=== PATIENT | female | born 1965 | race Hispanic/Latino ===

== ENCOUNTER 2019-04-15 05:19 | Emergency (ER) | payer OTHER ==
[~2019-04-15] VITALS: Ht 162.6 cm; Wt 83.5 kg
[2019-04-15] MEDS ORDERED: ONDANSETRON HCL INJ 2MG/ML 2ML 2 MG/ML VIAL IV STA (05:30)
[2019-04-15] MEDS ORDERED: PANTOPRAZOLE 40 MG 10ML VIAL IV STA (05:30)
[2019-04-15] MEDS ORDERED: DICYCLOMINE HCL 20 MG/2 ML VIAL IM ONE ×2 (05:30→06:19)
[2019-04-15] MEDS ORDERED: ACETAMINOPHEN 325 MG TAB PO ONE (05:45)
[2019-04-15] MEDS ORDERED: SODIUM CHLORIDE 0.9% 1000ML 1,000 ML IV ONE (05:45)
--- NOTE | 2019-04-15 05:58 | NUR ---
PTS SPOUSE REPORTS SON DIAGNOSED WITH FLU ON FRIDAY
[2019-04-15 06:06] LABS: BASOPHILS % 0.4 % (0.0-1.0); EOSINOPHILS # (AUTO) 0.2 (0.0-0.4); EOSINOPHILS % 2.4 % (0.0-6.0); HEMATOCRIT 38.9 % (34.2-44.1); HEMOGLOBIN 13.2 g/dL (12.0-16.0); LYMPHOCYTES # (AUTO) 1.1 (1.0-3.2); LYMPHOCYTES % 13.6 % (18.0-39.1); MEAN CORPUSCULAR HEMOGLOBIN 29.9 pg (28-32); MEAN CORPUSCULAR HGB CONC 33.9 g/dL (31-35); MONOCYTES # (AUTO) 0.5 (0.2-0.8); NEUTROPHILS # (AUTO) 6.1 (2.1-6.9); NEUTROPHILS % 77.2 % (38.7-80.0); PLATELET COUNT 227 x10e3/uL (140-360); RED BLOOD COUNT 4.42 x10e6/uL (3.6-5.1)
[2019-04-15 06:21] LABS: BILIRUBIN,URINE NEGATIVE (NEGATIVE); CLARITY,URINE CLEAR (CLEAR); COLOR,URINE YELLOW (YELLOW); KETONES,URINE NEGATIVE (NEGATIVE); LEUKOCYTE ESTERASE ,URINE NEGATIVE (NEGATIVE); NITRITE,URINE NEGATIVE (NEGATIVE); PROTEIN,URINE DIPSTICK NEGATIVE (NEGATIVE); URINE UROBILINOGEN 0.2 mg/dL (0.2 - 1)
[2019-04-15 06:22] LABS: BACTERIA,URINE RARE /HPF; EPITHELIAL CELLS,URINE FEW /LPF; RBC,URINE 0-5 /HPF (0-5); WBC,URINE (MAN) 0-5 /HPF (0-5)
--- NOTE | 2019-04-15 06:32 | Diagnostic Imaging Report ---
EXAMINATION: CHEST SINGLE (PORTABLE) INDICATION: Fever. COMPARISON: None FINDINGS: TUBES and LINES: None. LUNGS: Lungs are well inflated. Patchy density in the lung bases may represent atelectasis, however, developing infection or aspiration with interferential diagnosis proper clinical setting. There is no evidence of pneumonia or pulmonary edema. PLEURA: No pleural effusion or pneumothorax. HEART AND MEDIASTINUM: Cardiac size is mildly enlarged. BONES AND SOFT TISSUES: No acute osseous lesion. UPPER ABDOMEN: No free air under the diaphragm. IMPRESSION: Patchy density in the lung bases may represent atelectasis, however, developing infection or aspiration with interferential diagnosis proper clinical setting Signed by: Dr. Jaun Luis Olvera M.D. on 04/15/2019 6:29 AM
[2019-04-15 06:40] LABS: ALANINE AMINOTRANSFERASE 14 IU/L (0-55); ALKALINE PHOSPHATASE 104 IU/L (40-150); ANION GAP 17.6 mmol/L (8-16); BLOOD UREA NITROGEN 13 mg/dL (7-26); BUN/CREATININE RATIO 16 (6-25); CARBON DIOXIDE 25 mmol/L (22-29); CHLORIDE 102 mmol/L (98-107); CREATINE KINASE 109 IU/L (29-168); CREATININE, SERUM 0.79 mg/dL (0.57-1.11); EST GLOMERULAR FILTRATION RATE > 60 ML/MIN (60-); GLUCOSE 94 mg/dL (74-118); POTASSIUM 3.6 mmol/L (3.5-5.1); SODIUM 141 mmol/L (136-145)
[2019-04-15 07:05] LABS: AMYLASE 66 U/L (25-125); LIPASE 27 U/L (8-78)
--- NOTE | 2019-04-15 07:29 | Diagnostic Imaging Report ---
EXAM: Right Upper Quadrant Ultrasound INDICATION: Right upper quadrant pain. COMPARISON: None. TECHNIQUE: Transverse and longitudinal images of the right upper abdomen were obtained. FINDINGS: Liver: Size: 12.7 cm in the right midclavicular line, normal Appearance: Mildly diffuse increased echogenicity, smooth contour Mass: No focal masses Gallbladder: Stones/Sludge: Multiple shadowing echogenic foci within the gallbladder lumen. Wall: 0.4 cm, mildly thickened. Appearance: No wall thickening, pericholecystic fluid or hydrops. Sonographic Veras's Sign: Negative Bile Ducts: Intrahepatic Ducts: No dilatation Extrahepatic Ducts: Common bile duct measures 0.4 cm, no dilatation Pancreas: Visualized portions of the pancreatic head, neck and proximal body are normal. Kidneys: Length: Right 11.2 cm Echogenicity: Normal Collecting System: No hydronephrosis Stone: None Cyst/Mass: Anechoic lesion in the lower pole is 3.2 x 2.7 x 3.2 cm consistent with a simple cyst. Vessels: Aorta: Not visualized due to shadowing from overlying bowel gas. Inferior Vena Cava: Visualized portions are normal Main Portal Vein: 0.7 cm, normal size with hepatopetal flow. Free Fluid: No ascites or pleural effusion IMPRESSION: Cholelithiasis associated with mild gallbladder wall thickening, however, without pericholecystic fluid, and a negative sonographic Veras's sign; these findings may reflect chronic calculus cholecystitis. Recommend surgical consultation. Signed by: Dr. Juan Luis Olvera M.D. on 04/15/2019 7:26 AM
[2019-04-15 07:51] VITALS: BP 120/50
== END 2019-04-15 08:07 | disposition home or self-care (01) ==
LOC: ER 05:19
DX: K80.80 Other cholelithiasis without obstruction (principal); J06.9 Acute upper respiratory infection, unspecified; I10 Essential (primary) hypertension; E11.9 Type 2 diabetes mellitus without complications; E78.5 Hyperlipidemia, unspecified
CPT/HCPCS: 36415; 71045; 76705; 80053; 81001; 82150; 82550; 82553; 83518; 83605; 83690; 84484; 85025; 87040; 87070; 87086; 87400; 93005; 96374; 96375; 99284; C9113; J0500; J2405; J7030

== ENCOUNTER → 2019-05-10 | Day surgery (SDC) | payer OTHER ==
[2019-04-29 13:07] LABS: BASOPHILS % 0.4 % (0.0-1.0); EOSINOPHILS # (AUTO) 0.2 (0.0-0.4); EOSINOPHILS % 2.7 % (0.0-6.0); HEMATOCRIT 38.3 % (34.2-44.1); HEMOGLOBIN 12.6 g/dL (12.0-16.0); LYMPHOCYTES # (AUTO) 2.1 (1.0-3.2); LYMPHOCYTES % 27.4 % (18.0-39.1); MEAN CORPUSCULAR HEMOGLOBIN 29.7 pg (28-32); MEAN CORPUSCULAR HGB CONC 32.9 g/dL (31-35); MEAN CORPUSCULAR VOLUME 90.3 fL (81-99); MONOCYTES # (AUTO) 0.4 (0.2-0.8); MONOCYTES % 5.2 % (4.4-11.3); PLATELET COUNT 266 x10e3/uL (140-360); RED BLOOD COUNT 4.24 x10e6/uL (3.6-5.1); RED CELL DISTRIBUTION WIDTH 12.7 % (11.7-14.4)
[2019-04-29 13:27] LABS: ALANINE AMINOTRANSFERASE 19 IU/L (0-55); ALBUMIN 3.8 g/dL (3.5-5.0); ALBUMIN/GLOBULIN RATIO 1.1 (0.8-2.0); ALKALINE PHOSPHATASE 85 IU/L (40-150); ANION GAP 11.7 mmol/L (8-16); BLOOD UREA NITROGEN 15 mg/dL (7-26); BUN/CREATININE RATIO 21 (6-25); CALCIUM 9.9 mg/dL (8.4-10.2); CARBON DIOXIDE 28 mmol/L (22-29); CHLORIDE 105 mmol/L (98-107); CREATININE, SERUM 0.73 mg/dL (0.57-1.11); EST GLOMERULAR FILTRATION RATE > 60 ML/MIN (60-); GLUCOSE 108 mg/dL (74-118); POTASSIUM 4.7 mmol/L (3.5-5.1); SODIUM 140 mmol/L (136-145)
[~2019-05-10] MED LIST: ATORVASTATIN CA20 MG PO; BUPIVACAINE 0.25% 30ML SDV INJ ONE; CEFOXITIN 1GM/ D5W 50ML 50 ML IV ONE; CEFOXITIN IV ONE; D5W IV ONE; DEXAMETHASONE SOD PHOS INJ 4 MG/ML VIAL ONE; FENTANYL CITRATE/PF 100MCG/2 ML INJ ONE; GLIPIZIDE5 MG PO; GLYCOPYRROLATE INJ 0.2 MG/ML VIAL ONE; HYDROCHLOROTH12.5 MG PO; HYDROCODONE/APAP 7.5MG-325MG 1 EA TAB ONE; JANUVIA100 MG PO; LIDOCAINE HCL 2% LOCAL INJ 5 ML SDV VIAL INJ ONE; LOSARTAN POTAS100 MG PO; METFORMIN HCL1000 MG PO; MIDAZOLAM HCL 2 MG/2 ML VIAL ONE; NEOSTIGMINE 1 MG/ML 10ML VIAL ONE; ONDANSETRON HCL INJ 2MG/ML 2ML 2 MG/ML VIAL ONE; PLOGLITAZONE PO; PROPOFOL IV EMULSION 10 MG/ML 20 ML VIAL ONE; ROCURONIUM BROMIDE 10 MG/ML 5ML VIAL ONE; SEVOFLURANE INHAL SOLN 250 ML PEN BTL ONE
--- OUTSIDE RECORDS SUMMARY | 2019-05-10 07:18 | XMS REPORT ---
Author Author [facility] Organization [facility] Address Unknown Phone Unavailable Care Team Providers Care Pulling Unit Operator Name Role Phone Cassi COMER Unavailable Unavailable Cassi LEBLANC Unavailable Unavailable Payers Payer Name Policy Type Policy Number Effective Date Expiration Date Problems This patient has no known problems. Allergies, Adverse Reactions, Alerts Allergy Name Allergy Type Status Severity Reaction(s) Onset Date Inactive Date Treating Clinician Comments No Known Allergies DA Active U 2010-10-22 00:00:00 Medications This patient has no known medications. Results Test Description Test Time Test Comments Text Results Atomic Results Result Comments US GALLBLADDER 2019-04-15 07:18:00 [place] [address] Patient Name: ESTELLE BLAKE MR #: [id number] : 1965 Age/Sex: 54/F Req #: [id number] Adm Physician: Ordered by: ARLENE COMER MD Report #: [id number] Location: ER Room/Bed: Procedure: [id number] US/ GALLBLADDER Exam Date: 04/15/19 Exam Time: 0657 REPORT STATUS: Signed EXAM: Right Upper Quadrant Ultrasound INDICATION: Right upper quadrant pain. COMPARISON: None. TECHNIQUE: Transverse and longitudinal images of the right upper abdomen were obtained. FINDINGS: Liver: Size: 12.7 cm in the right midclavicular line, normal Appearance: Mildly diffuse increased echogenicity, smooth contour Mass: No focal masses Gallbladder: Stones/Sludge: Multiple shadowing echogenic foci within the gallbladder lumen. Wall: 0.4 cm, mildly thickened. Appearance: No wall thickening, pericholecystic fluid or hydrops. Sonographic Veras's Sign: Negative Bile Ducts: Intrahepatic Ducts: No dilatation Extrahepatic Ducts: Common bile duct measures 0.4 cm, no dilatation Pancreas: Visualized portions of the pancreatic head, neck and proximal body are normal. Kidneys: Length: Right 11.2 cm Echogenicity: Normal Collecting System: No hydronephrosis Stone: None Cyst/Mass: Anechoic lesion in the lower pole is 3.2 x 2.7 x 3.2 cm consistent with a simple cyst. Vessels: Aorta: Not visualized due to shadowing from overlying bowel gas. Inferior Vena Cava: Visualized portions are normal Main Portal Vein: 0.7 cm, normal size with hepatopetal flow. Free Fluid: No ascites or pleural effusion IMPRESSION: Cholelithiasis associated with mild gallbladder wall thickening, however, without pericholecystic fluid, and a negative sonographic Veras's sign; these findings may reflect chronic calculus cholecystitis. Recommend surgical consultation. Signed by: Dr. Juan Luis Schuler M.D. on 04/15/2019 7:26 AM Dictated By: DARYL SCHULER MD, MD 5 Transcribed By: RAJWINDER on 04/15/19725 COPY TO: ARLENE COMER MD CHEST SINGLE (PORTABLE) 2019-04-15 06:26:00 [place] [address] Patient Name: ESTELLE BLAKE MR #: [id number] : 1965 Age/Sex: 54/F Req #: [id number] Adm Physician: Ordered by: ARLENE COMER MD Report #: [id number] Location: Room/Bed: Procedure: [id number] DX/CHEST SINGLE (PORTABLE) Exam Date: 04/15/19 Exam Time: 0600 REPORT STATUS: Signed EXAMINATION: CHEST SINGLE (PORTABLE) INDICATION: Fever. COMPARISON: None FINDINGS: TUBES and LINES: None. LUNGS: Lungs are well inflated. Patchy density in the lung bases may represent atelectasis, however, developing infection or aspiration with interferential diagnosis proper clinical setting. There is no evidence of pneumonia or pulmonary edema. PLEURA: No pleural effusion or pneumothor ax. HEART AND MEDIASTINUM: Cardiac size is mildly enlarged. BONES AND SOFT TISSUES: No acute osseous lesion. UPPER ABDOMEN: No free air under the diaphragm. IMPRESSION: Patchy density in the lung bases may represent atelectasis, however, developing infection or aspiration with interferential diagnosis proper clinical setting Signed by: Dr. Juan Luis Schuler M.D. on 04/15/2019 6:29 AM Dictated By: DARYL SCHULER MD, MD 8 Transcribed By: RAJWINDER on 04/15/19628 COPY TO: ARLENE COMER MD RBC, Crossmatch 2 2016-05-18 01:53:00 Product 1 Code (test code=PRODCODE1) E4545 Unit 1 ID (test code=UNITID1) [id number] Unit 1 ABO (test code=UNITABO1) O Unit 1 Rh (test code=UNITRH1) POS Unit 1 Interp (test code=UNITINTERP1) Compatible Unit 1 Status (test code=UNITSTAT1) RE Product 2 Code (test code=PRODCODE2) E4545 Unit 2 ID (test code=UNITID2) [id number] Unit 2 ABO (test code=UNITABO2) O Unit 2 Rh (test code=UNITRH2) POS Unit 2 Interp (test code=UNITINTERP2) Compatible Unit 2 Status (test code=UNITSTAT2) RE POC Glucose, [id number] 12:25:00* Test Item Value Reference Range Comments POC Glucose (test code=POCGLUC) 188 mg/dL 70-115 If you consider your patient critically ill, the Abilio Accu-Chek InformII metershould not be used for Glucose determinations.Draw a venous Glucose and send to the Main Lab for Analysis. [id number] 06:24:00* Test Item Value Reference Range Comments WBC (test code=WBC) 15.4 K/cumm 4.4-10.5 RBC (test code=RBC) 3.86 M/cumm 3.75-5.20 Hemoglobin (test code=HGB) 7.1 gm/dL 12.2-14.8 Hematocrit (test code=HCT) 27.5 % 36.5-44.4 MCV (test code=MCV) 71.2 fL 80-100 MCH (test code=MCH) 18.4 pg 27.0-32.5 MCHC (test code=MCHC) 25.8 g/dL 32.0-37.5 RDW (test code=RDW) 18.1 % 11.5-14.5 Platelet Count (test code=PLTCT) 260 K/cumm 140-440 MPV (test code=MPV) 8.6 fL POC Glucose, [id number] 21:52:00* Test Item Value Reference Range Comments POC Glucose (test code=POCGLUC) 218 mg/dL 70-115 Notify RN or MDIf you consider your patient critically ill, the Abilio Accu-Chek InformII metershould not be used for Glucose determinations.Draw a venous Glucose and send to the Main Lab for Analysis. POC Glucose, [id number] 16:12:00* Test Item Value Reference Range Comments POC Glucose (test code=POCGLUC) 262 mg/dL 70-115 If you consider your patient critically ill, the Abilio Accu-Chek InformII metershould not be used for Glucose determinations.Draw a venous Glucose and send to the Main Lab for Analysis. Blood Type and [id number] 14:16:00* Test Item Value Reference Range Comments ABO type (test code=ABO) O Rh Type (test code=RH) Positive Antibody Screen - [id number] 14:08:00* Test Item Value Reference Range Comments Antibody Screen (test code=ABSCR) Negative POC Glucose, [id number] 10:02:00* Test Item Value Reference Range Comments POC Glucose (test code=POCGLUC) 187 mg/dL 70-115 If you consider your patient critically ill, the Abilio Accu-Chek InformII metershould not be used for Glucose determinations.Draw a venous Glucose and send to the Main Lab for Analysis. BHCG, Serum, [id number] 18:25:00* Test Item Value Reference Range Comments Preg Qual [Se] (test code=BSHCG) Negative Negative CBC with [id number] 17:24:00* Test Item Value Reference Range Comments WBC (test code=WBC) 10.5 K/cumm 4.4-10.5 RBC (test code=RBC) 4.45 M/cumm 3.75-5.20 Hemoglobin (test code=HGB) 8.3 gm/dL 12.2-14.8 Hematocrit (test code=HCT) 30.1 % 36.5-44.4 MCV (test code=MCV) 67.6 fL 80-100 MCH (test code=MCH) 18.6 pg 27.0-32.5 MCHC (test code=MCHC) 27.5 g/dL 32.0-37.5 RDW (test code=RDW) 18.6 % 11.5-14.5 Platelet Count (test code=PLTCT) 352 K/cumm 140-440 MPV (test code=MPV) 8.6 fL Diff Method (test code=DIFFM) Manual Neutrophil (test code=NEUT) 69.0 % 36-70 Bands (test code=BAND) 1.0 % 0-6 Lymphocyte (test code=LYMPH) 18.0 % 12-44 Monocyte (test code=MONO) 6.0 % 0-11 Eosinophil (test code=EOS) 4.0 % 0-7 Basophil (test code=BASO) 1.0 % 0-2 Myelocyte (test code=MYELO) 1.0 % 0.0-0.0 Neutro Abs (test code=ANEUT) 7.4 K/cumm 1.6-7.4 Lymph Abs (test code=ALYMPH) 1.9 K/cumm 0.5-4.6 Morrill Abs (test code=AMONO) 0.6 K/cumm 0.0-1.2 Eos Abs (test code=AEOS) 0.42 K/cumm 0.00-0.74 Baso Abs (test code=ABASO) 0.1 K/cumm 0.00-0.21 RBC Morphology (test code=RBCMRPH) Slight Polychromasia ; Few Ovalocytes ; Moderate Anisocytosis Platelet Est (test code=PLTEST) Normal Platelet on Smear Comprehensive Metabolic [id number] 17:08:00* Test Item Value Reference Range Comments Sodium (test code=NA) 138 mmol/L 135-145 Potassium (test code=K) 4.3 mmol/L 3.5-5.1 Chloride (test code=CL) 101 mmol/L 98-105 Carbon Dioxide (test code=CO2) 30 mmol/L 22-29 Glucose (test code=GLU) 100 mg/dL 70-115 Blood Urea Nitrogen (test code=BUN) 13 mg/dL 6-20 Creatinine (test code=CREAT) 0.5 mg/dL 0.5-0.9 Calcium (test code=CA) 9.5 mg/dL 8.3-10.5 Prot Total (test code=TP) 7.6 g/dL 6.4-8.3 Albumin (test code=ALB) 4.2 g/dL 3.5-5.2 A/G Ratio (test code=AGRATIO) 1.2 Ratio Globulin (test code=GLOB) 3.4 2.9-3.1 Bili Total (test code=TBIL) 0.2 mg/dL 0.1-0.9 Alk Phos (test code=APHOS) 119 U/L 35-104 AST (test code=AST) 14 U/L 1-32 ALT (test code=ALT) 13 U/L 1-33 BUN/Creatinine Ratio (test code=BCRATIO) 26.0 Anion Gap (test code=AGAP) 7 mmol/L 7-16 Estimated GFR (test code=GFR) >60 mL/min/1.73m2 eGFR (estimated Glomerular Filtration Rate) is an estimated value,calculated from the patient's serum creatinine using the MDRD equation.It is NOT the patient's actual GFR. The eGFR provides a more clinicallyuseful measure of kidney disease than serum creatinine alone.This calculation takes sex and race into account, if the informationis provided. If the race is not provided, and the patient isAfrican-R[place], multiply by 1.212. If sex is not provided, and thepatient is female, multiply by 0.742. Results for patients <18 years ofage have not been validated by the MDRD study and should be interpretedwith caution.eGFR Result Interpretation:eGFR > or=60 is in the Normal RangeeGFR < 60 may mean kidney diseaseeGFR < 15 may mean kidney failureRanges recommended by the National Kidney Foundat ion,http://nkdep.nih.gov
[2019-05-10 12:15] VITALS: BP 139/72
--- NOTE | 2019-05-10 17:10 | Operative Report ---
DATE OF PROCEDURE: 05/10/2019 SURGEON: eLland Marcos MD PREOPERATIVE DIAGNOSES: Cholelithiasis and cholecystitis. POSTOPERATIVE DIAGNOSES: Cholelithiasis and cholecystitis. OPERATIVE PROCEDURE: Laparoscopic cholecystectomy. ANESTHESIA: General. INDICATION: This patient is a 54-year-old female with recurrent epigastric pain and gallstone. She consented for laparoscopic cholecystectomy. Attendant risks discussed. PROCEDURE FINDINGS: Chronic cholecystitis with gallstone. DESCRIPTION OF PROCEDURE: The patient was brought to the OR and intubated. The abdomen was prepped and draped in sterile fashion. An infraumbilical incision was made and a 10 mm port inserted. Insufflation then begun under direct vision, other port sites were placed in the midepigastric and right upper quadrant. Gallbladder was chronically inflamed and distended. Fundus retracted in cephalad direction. Next, the gallbladder was retracted laterally. With blunt dissection, we isolated the cystic artery, triple clipped and divided. Cystic duct was dissected down to the junction with the common bile duct where the cystic duct was triple clipped and divided 1 cm away from the junction. The gallbladder was detached from the liver and taken out through the umbilical incision. Operative field was irrigated with saline solution. Hemostasis was achieved. All ports were then removed under direct vision. Fascia was closed with 0 Vicryl. Skin was closed with subcuticular stitch. The patient was extubated and transported to recovery room. ESTIMATED BLOOD LOSS: 20 mL. Leland Marcos MD DNL/MODL /[id number]
--- NOTE | 2019-05-11 02:27 | Operative Report ---
DATE OF PROCEDURE: 05/10/2019 SURGEON: Leland Marcos MD PREOPERATIVE DIAGNOSIS: Cholecystitis. POSTOPERATIVE DIAGNOSIS: Cholecystitis and cholelithiasis. OPERATIVE PROCEDURE: Laparoscopic cholecystectomy. BREAKER UP MACHINE OPERATOR: None. ANESTHESIA: General. INDICATIONS: A 54-year-old female with recurrent epigastric pain and gallstones seen. The patient consented for laparoscopic cholecystectomy. Attendant risks discussed. PROCEDURE FINDINGS: Chronic cholecystitis. DESCRIPTION OF PROCEDURE: The patient was brought to the OR intubated, the abdomen was prepped and draped in sterile fashion. An infraumbilical incision was made and an 11 mm port inserted. Insufflation began under direct vision of the port site placed in the epigastric and right upper quadrant. Gallbladder was chronically inflamed, fundus retracted in cephalad direction. Neck of the gallbladder retracted laterally with blunt and sharp dissection. We first isolated the cystic artery, triple clipped and divided. Cystic duct was isolated and the junction of common bile duct was noted before triple clipping the cystic duct and divided between clips, approximately 1 cm away from the junction. The gallbladder detached from the liver with cautery and taken out through the umbilical port site. Operative field was irrigated. Hemostasis was achieved in the gallbladder fossa with cautery and Surgicel. All ports removed under direct vision. Fascia was closed with 0 Vicryl, skin then closed with subcuticular stitch. The patient was extubated and transported to recovery room. ESTIMATED BLOOD LOSS: 10 mL. Leland Marcos MD DNL/MODL /[id number]
== END | disposition home or self-care (01) ==
LOC: OR 07:16
PROVIDERS: ATTEND Surgery
DX: K80.10 Calculus of gallbladder with chronic cholecystitis without obstruction (principal); E11.9 Type 2 diabetes mellitus without complications; I10 Essential (primary) hypertension; E78.00 Pure hypercholesterolemia, unspecified; Z88.6 Allergy status to analgesic agent; Z01.810 Encounter for preprocedural cardiovascular examination; Z01.812 Encounter for preprocedural laboratory examination; Z79.84 Long term (current) use of oral hypoglycemic drugs; Z68.32 Body mass index [BMI] 32.0-32.9, adult; Z86.2 Personal history of diseases of the blood and blood-forming organs and certain disorders involving the immune mechanism
CPT/HCPCS: 36415 ×2; 47562; 80053; 82948; 85025; 88304; 93005; J1100; J2001; J2250; J2405; J2704; J2710; J3010